=== PATIENT | female | born 1955 | race Caucasian/White ===

== ENCOUNTER 2016-12-21 09:34 | Emergency (ER) | payer BC, OTHER ==
[2016-12-21 09:49] VITALS: BP 105/58
[2016-12-21] MEDS ORDERED: Sodium Chloride 0.9% 1,000 ML IV ONE (10:36)
--- NOTE | 2016-12-21 10:39 | EDM.PDOC ---
ED HPI GENERAL MEDICAL PROBLEM - General Chief Complaint: General Stated Complaint: UPPER RESP Time Seen by Provider: 12/21/16 10:30 Source of Information: Reports: Patient History Limitations: Reports: No limitations - History of Present Illness INITIAL COMMENTS - FREE TEXT/NARRATIVE: This 61 yo female patient reports to the ED due to a cough, fever and generalized body aches. The patient reports her symptoms started last Tuesday and have been getting worse. Onset: gradual Onset Date: 12/15/16 Duration: Constant, Getting worse Location: Reports: chest, generalized Quality: Reports: Other Severity: moderate Improves with: Reports: None Worsens with: Reports: Movement Associated Symptoms: Reports: cough w sputum, fever/chills, nausea/vomiting, shortness of breath, weakness Generalized Pain Score (Numeric/FACES): 2 - Related Data Allergies Allergy/AdvReac Type Severity Reaction Status Date / Time azithromycin Allergy Hives Verified 12/21/16 09:56 nitrofurantoin Allergy Abdominal Verified 12/21/16 09:56 [From Macrobid] Pain nitrofurantoin Allergy Abdominal Verified 12/21/16 09:56 macrocrystalline Pain [From Macrobid] Penicillins Allergy Cannot Verified 12/21/16 09:56 Remember Sulfa (Sulfonamide Allergy Anaphylactic Verified 12/21/16 09:56 Antibiotics) Shock Home Meds: Home Meds Aspirin [Halfprin] 81 mg PO DAILY 08/29/14 [History] Cholecalciferol (Vitamin D3) [Vitamin D] 1,000 unit PO DAILY 08/29/14 [History] Fish Oil/[place]-3 Fatty Acids [Fish Oil] 2 each PO DAILY 08/29/14 [History] Multivitamin [Multivitamins] 1 each PO DAILY 08/29/14 [History] atorvaSTATin [Lipitor] 10 mg PO BEDTIME 08/29/14 [History] Drospirenone/Estradiol [Angeliq 0.5 mg-1 mg Tablet] 1 tab PO DAILY 02/11/15 [ History] Doxycycline [Vibramycin] 100 mg PO BID 12/21/16 [History] methylPREDNISolone [Medrol] 4 mg PO DAILY 12/21/16 [History] Past Medical History HEENT History: Reports: Impaired vision, Other (see below) Other HEENT History: Pt wears glasses Cardiovascular History: Reports: Afib Respiratory History: Reports: None Gastrointestinal History: Reports: None Genitourinary History: Reports: None [employer] History: Reports: None Musculoskeletal History: Reports: None Neurological History: Reports: None Psychiatric History: Reports: None Endocrine/Metabolic History: Reports: None Hematologic History: Reports: None Immunologic History: Reports: None Oncologic (Cancer) History: Reports: None Dermatologic History: Reports: None - Infectious Disease History Infectious Disease History: Reports: None - Past Surgical History Head Surgeries/Procedures: Reports: None Social & Family History - Family History Family Medical History: Noncontributory - Tobacco Use Smoking Status *Q: Never Smoker Second Hand Smoke Exposure: No - Caffeine Use Caffeine Use: Reports: None - Alcohol Use Days Per Week of Alcohol Use: 0 - Recreational Drug Use Recreational Drug Use: No ED ROS GENERAL - Review of Systems Review Of Systems: ROS reveals no pertinent complaints other than HPI. ED EXAM, GENERAL - Physical Exam Exam: See Below Exam Limited By: No limitations General Appearance: alert, WD/WN, moderate distress, thin Eye Exam: bilateral eye: EOMI, normal inspection, PERRL Ears: normal external exam, normal canal, hearing grossly normal, normal TMs Nose: normal inspection, normal mucosa, no blood Throat/Mouth: Normal inspection, Normal lips, Normal teeth, Normal gums, Normal oropharynx, Normal voice, No airway compromise Head: atraumatic, normocephalic Neck: normal inspection, supple, non-tender, full range of motion Respiratory/Chest: no respiratory distress, no accessory muscle use, chest non- tender, rhonchi (diffuse) Cardiovascular: normal peripheral pulses, regular rate, rhythm, no edema, no gallop, no JVD, no murmur, no rub GI/Abdominal: normal bowel sounds, soft, non tender, no organomegaly, no distention, no abnormal bruit, no mass (Female) Exam: Deferred Rectal (Female) Exam: Deferred Back Exam: normal inspection, full range of motion, NT Extremities: normal inspection, normal range of motion, non-tender, normal capillary refill, no pedal edema Neurological: alert, oriented, CN II-XII intact, normal cognition, normal gait, normal reflexes, no motor/sensory deficits Psychiatric: normal affect, normal mood Skin Exam: Diaphoretic, Increased warmth Lymphatic: no adenopathy Course - Vital Signs Last Recorded V/S: Last Vital Signs Temp 36.9 C 12/21/16 09:48 Pulse 76 12/21/16 11:52 Resp 16 12/21/16 09:48 BP 105/58 L 12/21/16 09:48 Pulse Ox 92 L 12/21/16 09:48 - Orders/Labs/Meds Orders: Active Orders 24 hr Category Date Time Status RT Aerosol Therapy [RC] ASDIRECTED Care 12/21/16 11:40 Ordered CULTURE BLOOD [BC] Stat Lab 12/21/16 10:47 Received CULTURE BLOOD [BC] Stat Lab 12/21/16 10:50 Received CULTURE STREP A CONFIRMATION [] Stat Lab 12/21/16 09:59 Results STREP SCRN A RAPID W CULT CONF [] Stat Lab 12/21/16 09:59 Results Benzonatate [Tessalon Perles] Med 12/21/16 12:19 Once 200 mg PO ONETIME ONE Levofloxacin/Dextrose 5%-Water [Levaquin in D5W 500 MG/ Med 12/21/16 11:49 Ordered 100 ML] 500 mg Premix Bag 1 bag IV ONETIME Sodium Chloride 0.9% [Normal Saline] 1,000 ml Med 12/21/16 10:36 Active IV .BOLUS Blood Culture x2 Reflex Set [OM.PC] Stat Oth 12/21/16 10:34 Ordered Medication Orders Benzonatate (Tessalon Perles) 200 mg PO ONETIME ONE Stop: 12/21/16 12:20 Sodium Chloride (Normal Saline) 1,000 mls @ 500 mls/hr IV .BOLUS ONE Stop: 12/21/16 12:35 Last Admin: 12/21/16 10:58 Dose: 500 mls/hr Levofloxacin/Dextrose 500 mg/ (Premix) 100 mls @ 100 mls/hr IV ONETIME ONE Stop: 12/21/16 12:48 Last Admin: 12/21/16 11:55 Dose: 100 mls/hr Labs: Laboratory Tests 12/21/16 12/21/16 12/21/16 Range/Units 10:45 10:50 10:50 WBC 11.3 H (5.0-10.0) 10^3/uL RBC 4.40 (4.2-5.4) 10^6/uL Hgb 13.5 (12.0-16.0) g/dL Hct 39.5 (37.0-47.0) % MCV 89.8 (80-100) fL MCH 30.7 (27.0-34.0) pg MCHC 34.2 (33.0-35.0) g/dL Plt Count 185 (150-450) 10^3/uL Neut % (Auto) 76.8 H (42.2-75.2) % Lymph % (Auto) 12.7 L (20.5-50.1) % [place] % (Auto) 10.3 H (2-8) % Eos % (Auto) 0.0 L (1.0-3.0) % Baso % (Auto) 0.2 (0.0-1.0) % Sodium (135-145) mmol/L Potassium (3.6-5.0) mmol/L Chloride (101-111) mmol/L Carbon Dioxide (21.0-31.0) mmol/L Anion Gap BUN (7-18) mg/dL Creatinine (0.6-1.3) mg/dL Est Cr Clr Drug Dosing mL/min Estimated GFR (MDRD) BUN/Creatinine Ratio Glucose (74-105) mg/dL Lactic Acid 1.1 (0.5-2.2) mmol/L Calcium (8.4-10.2) mg/dl Total Bilirubin (0.2-1.0) mg/dL AST (10-42) IU/L ALT (10-60) IU/L Alkaline Phosphatase (42-121) IU/L Total Protein (6.7-8.2) g/dl Albumin (3.2-5.5) g/dl Globulin Albumin/Globulin Ratio Urine Color Yellow (YELLOW) Urine Appearance Slightly cloudy (CLEAR) Urine pH 5.5 (5.0-9.0) Ur Specific [place] 1.020 (1.005-1.030) Urine Protein 100 H (NEGATIVE) Urine Glucose (UA) Negative (NEGATIVE) Urine Ketones Negative (NEGATIVE) Urine Occult Blood Negative (NEGATIVE) Urine Nitrite Negative (NEGATIVE) Urine Bilirubin Negative (NEGATIVE) Urine Urobilinogen 0.2 (0.2-1.0) mg/dL Ur Leukocyte Esterase Negative (NEGATIVE) Urine RBC 0-5 /HPF Urine WBC 0-5 (0-5/HPF) /HPF Ur Epithelial Cells Moderate H /HPF Fine Granular Casts (0/LPF) /LPF Coarse Granular Casts /LPF Urine Mucus Moderate H /LPF 12/21/16 Range/Units 10:50 WBC (5.0-10.0) 10^3/uL RBC (4.2-5.4) 10^6/uL Hgb (12.0-16.0) g/dL Hct (37.0-47.0) % MCV (80-100) fL MCH (27.0-34.0) pg MCHC (33.0-35.0) g/dL Plt Count (150-450) 10^3/uL Neut % (Auto) (42.2-75.2) % Lymph % (Auto) (20.5-50.1) % [place] % (Auto) (2-8) % Eos % (Auto) (1.0-3.0) % Baso % (Auto) (0.0-1.0) % Sodium 134 L (135-145) mmol/L Potassium 3.5 L (3.6-5.0) mmol/L Chloride 101 (101-111) mmol/L Carbon Dioxide 23.0 (21.0-31.0) mmol/L Anion Gap 13.5 BUN 19 H (7-18) mg/dL Creatinine 1.0 (0.6-1.3) mg/dL Est Cr Clr Drug Dosing 50.37 mL/min Estimated GFR (MDRD) 56 BUN/Creatinine Ratio 19.00 Glucose 137 H (74-105) mg/dL Lactic Acid (0.5-2.2) mmol/L Calcium 8.7 (8.4-10.2) mg/dl Total Bilirubin 1.0 (0.2-1.0) mg/dL AST 37 (10-42) IU/L ALT 30 (10-60) IU/L Alkaline Phosphatase 59 (42-121) IU/L Total Protein 7.3 (6.7-8.2) g/dl Albumin 4.0 (3.2-5.5) g/dl Globulin 3.3 Albumin/Globulin Ratio 1.21 Urine Color (YELLOW) Urine Appearance (CLEAR) Urine pH (5.0-9.0) Ur Specific [place] (1.005-1.030) Urine Protein (NEGATIVE) Urine Glucose (UA) (NEGATIVE) Urine Ketones (NEGATIVE) Urine Occult Blood (NEGATIVE) Urine Nitrite (NEGATIVE) Urine Bilirubin (NEGATIVE) Urine Urobilinogen (0.2-1.0) mg/dL Ur Leukocyte Esterase (NEGATIVE) Urine RBC /HPF Urine WBC (0-5/HPF) /HPF Ur Epithelial Cells /HPF Fine Granular Casts (0/LPF) /LPF Coarse Granular Casts /LPF Urine Mucus /LPF Meds: Medications Generic Name Dose Route Start Last Admin Trade Name Freq PRN Reason Stop Dose Admin Benzonatate 200 mg 12/21/16 12:19 Tessalon Perles PO 12/21/16 12:20 ONETIME ONE Sodium Chloride 1,000 mls @ 500 mls/hr 12/21/16 10:36 12/21/16 10:58 Normal Saline IV 12/21/16 12:35 500 mls/hr .BOLUS ONE Administration Levofloxacin/Dextrose 500 mg/ 100 mls @ 100 mls/hr 12/21/16 11:49 12/21/16 11 :55 Premix IV 12/21/16 12:48 100 mls/hr ONETIME ONE Administration Discontinued Medications Generic Name Dose Route Start Last Admin Trade Name Freq PRN Reason Stop Dose Admin Albuterol 2.5 mg 12/21/16 11:40 12/21/16 11:54 Proventil Neb Soln NEB 12/21/16 11:41 2.5 mg ONETIME ONE Administration Departure - Departure Time of Disposition: 12:20 Disposition: Home, Self-Care 01 Condition: fair Clinical Impression: Bronchitis Instructions: Acute Bronchitis, [id number] Forms: ED Department Discharge Care Plan Goals: The patient was advised of the lab and x-ray results during the visit. The patient was given an IV dose of Levaquin while in the ED. The patient was discharged with a script for Levaquin (500 mg) #6 to take 1 by mouth daily starting 12/22/16) and Tessalon Pearles (200 mg) #30 to take 1 by mouth 3 times per day. If the patient has any additional symptoms or concerns, the patient should follow-up with her primary care facility or return to the emergency department. - My Orders Last 24 Hours: My Active Orders 12/21/16 09:59 CULTURE STREP A CONFIRMATION [RM] Stat STREP SCRN A RAPID W CULT CONF [RM] Stat 12/21/16 10:34 Blood Culture x2 Reflex Set [OM.PC] Stat 12/21/16 10:36 Sodium Chloride 0.9% [Normal Saline] 1,000 ml IV .BOLUS 12/21/16 10:47 CULTURE BLOOD [BC] Stat 12/21/16 10:50 CULTURE BLOOD [BC] Stat 12/21/16 11:40 RT Aerosol Therapy [RC] ASDIRECTED 12/21/16 11:49 Levofloxacin/Dextrose 5%-Water [Levaquin in D5W 500 MG/100 ML] 500 mg Premix Bag 1 bag IV ONETIME 12/21/16 12:19 Benzonatate [Tessalon Perles] 200 mg PO ONETIME ONE - Assessment/Plan Last 24 Hours: My Active Orders 12/21/16 09:59 CULTURE STREP A CONFIRMATION [] Stat STREP SCRN A RAPID W CULT CONF [] Stat 12/21/16 10:34 Blood Culture x2 Reflex Set [OM.PC] Stat 12/21/16 10:36 Sodium Chloride 0.9% [Normal Saline] 1,000 ml IV .BOLUS 12/21/16 10:47 CULTURE BLOOD [BC] Stat 12/21/16 10:50 CULTURE BLOOD [BC] Stat 12/21/16 11:40 RT Aerosol Therapy [RC] ASDIRECTED 12/21/16 11:49 Levofloxacin/Dextrose 5%-Water [Levaquin in D5W 500 MG/100 ML] 500 mg Premix Bag 1 bag IV ONETIME 12/21/16 12:19 Benzonatate [Tessalon Perles] 200 mg PO ONETIME ONE
[2016-12-21] MEDS ORDERED: Albuterol 0.083% 2.5 MG/3 ML Neb Soln NEB ONE (11:40)
--- NOTE | 2016-12-21 11:45 | CR ---
CLINICAL HISTORY: 61-year-old female with a cough and fever (clinical "chest congestion"). INTERPRETATION: Normal cardiac silhouette and bony thorax (arthritic spurs) unremarkable. No cephalization of vascular flow, signs of alveolar edema or dependent effusion. No lung mass, stefani r lymphadenopathy or focal lobar pneumonia. No atelectasis/collapse but there is coarse accentuation of the central lung markings and mild peribronchial "cuffing" suggesting a bronchitis. CONCLUSION: Bronchitis. No signs of heart failure or lobar pneumonia.
[2016-12-21] MEDS ORDERED: Levofloxacin/Dextrose 5%-Water 500 MG in Premix Bag 1 BAG IV ONE (11:49)
[2016-12-21] MEDS ORDERED: Benzonatate 100 MG Cap PO ONE (12:19)
== END 2016-12-21 13:00 | disposition home or self-care (01) ==
LOC: DL.ED 09:34
DX: J40 Bronchitis, not specified as acute or chronic (principal); Z88.1 Allergy status to other antibiotic agents; Z88.8 Allergy status to other drugs, medicaments and biological substances; Z88.2 Allergy status to sulfonamides; Z88.0 Allergy status to penicillin; Z79.82 Long term (current) use of aspirin
CPT/HCPCS: 36415; 71020; 80053; 81001; 83605; 85025; 87040; 87081; 87430; 87804; 94640; 96361; 96365; 99284; A9270; J1956; J7030; J7620